=== PATIENT | female | born 1945 | race Caucasian/White ===

== ENCOUNTER → 2017-05-13 | Outpatient (CLI) | payer OTHER | LOC: BRMIMAGING 09:14 | PROVIDERS: ATTEND Internal Medicine | DX: M54.5 Low back pain (principal); M85.851 Other specified disorders of bone density and structure, right thigh; M25.559 Pain in unspecified hip; M51.36 Other intervertebral disc degeneration, lumbar region | CPT/HCPCS: 72100-PO; 73521-PO ==